=== PATIENT | male | born 1980 | race African-American/Black ===

== ENCOUNTER → 2017-12-31 13:07 | Outpatient (CLI) | payer OTHER, SELFPAY | PROVIDERS: Visit Provider Nurse Practitioner Adult Health | DX: R36.9 Urethral discharge, unspecified (principal) ==

== ENCOUNTER → 2020-05-09 16:34 | Outpatient (CLI) | payer OTHER, SELFPAY ==
[2020-05-09 18:04] LABS: Absolute Lymphocyte Count 1.94 X10^3/uL (0.83-4.51); Absolute Neutrophil Count 2.2 X10^3/uL (2.0-7.7); Basophil# 0.03 X10^3/uL; Basophil% 0.6 % (0-1); Eosinophil# 0.12 X10^3/uL; Eosinophils% 2.5 % (0-5); Hematocrit 45.8 % (40-54); Hemoglobin 15.1 g/dL (13.0-16.5); Lymphocyte # 1.94 X10^3/ul (4.0); Lymphocyte % 41.1 % (19-41); Mean Corpuscular Hgb 31.3 pg (27.0-32.0); Mean Platelet Vol. 10.3 fl (6.2-12.0); Monocyte# 0.41 X10^3/uL; Monocyte% 8.7 % (0-10); NRBC Flagged by Analyzer 0 % (0-5); Neutrophil # 2.21 X10^3/uL (2.7-7.7); Neutrophil % 46.9 % (47-70); Platelet Count 254 K/mm3 (150-450); RBC Distribution Width CV 12.6 % (11.6-14.6); RBC Distribution Width SD 43.6 fl (35.1-43.9); Red Blood Count 4.82 M/mm3 (4.6-6.2); White Blood Count 4.7 K/mm3 (4.4-11.0)
== END ==
PROVIDERS: PCP Family Medicine; Referring Provider Family Medicine; Visit Provider Family Medicine
DX: R10.30 Lower abdominal pain, unspecified (principal)
CPT/HCPCS: 36415; 84153; 85025

== ENCOUNTER → 2020-05-14 16:10 | Outpatient (CLI) | payer OTHER, SELFPAY ==
--- NOTE | 2020-05-14 16:13 | US_ITS ---
STUDY: SCROTUM ULTRASOUND REASON FOR EXAM: Male, 39 years old. LEFT TESTICULAR PAIN A COUPLE MONTHS PALPABLE LUMP TECHNIQUE: Ultrasound evaluation of the scrotum was performed with color Doppler and static scott-scale imaging. COMPARISON: None. FINDINGS: Right testicle measures 4.0 x 2.7 x 2.5 cm and left testicle measures 3.6 x 3.0 x 2.5 cm. Testes are symmetric and homogeneous with normal, symmetric vascularity. No testicular mass is present. Area of palpable mass corresponds with the 1.8 cm left epididymal head cyst. Epididymides are otherwise unremarkable with normal vascularity. Trace left hydrocele. Small left varicocele with associated phlebolith. US/Testicular with Arterial Flow IMPRESSION: 1. Area of palpable mass corresponds with the 1.8 cm left epididymal head cyst. 2. Trace left hydrocele. Small left varicocele with associated phlebolith. END OF IMPRESSION: Electronically Signed: Sukumar Ma, at 18:31 EDT Tel , Service support ,
== END ==
PROVIDERS: PCP Family Medicine; Referring Provider Family Medicine; Visit Provider Family Medicine
DX: N50.82 Scrotal pain (principal)
CPT/HCPCS: 76870; 93976

== ENCOUNTER 2020-12-03 20:09 | Emergency (ER) | payer OTHER, SELFPAY ==
[2020-12-03 20:11] VITALS: BP 173/103; PULSE 61; RESP 18; TEMP 36.4; O2SAT 99; BMI 25.1
--- NOTE | 2020-12-03 20:54 | ED.VISSUMM ---
- ER Visit Summary Date of Service: 12/03/20 Chief Complaint: [Penile discharge] History of Present Illness: The patient is a 39 M [presents to the emergency department complaint of penile discharge that started today. Patient states that he had unprotected intercourse several days ago. Patient does have prior history of gonorrhea x2. He denies any fevers. Patient states that the discharge is a beige color. Patient has some mild dysuria. Patient has history of hypertension but not being treated. Patient denies Covid symptoms or Covid exposures.] Physical Examination: [HEENT-PERRLA, EOMI. Cranial nerves II through XII grossly intact. TMs clear. Mucous membranes moist. No adenopathy. Cardiovascular-regular rate and rhythm without murmur or ectopy Lungs-clear to auscultation, chest wall stable without crepitus or subcu emphysema Abdomen-normoactive bowel sounds, soft, nontender, no rebound or rigidity, no peritoneal signs. exam-patient is a circumcised male. No external lesions noted. Patient does have small amount of clearish discharge noted on exam. Extremities-intact ?4, normal range of motion, normal pulses, atraumatic] Test Results: [] Urine was sent for GC and chlamydia and the results will be pending. Emergency Department Course and Treatment: [Patient will be treated with Rocephin 250 mg IM and Zithromax 1 g p.o.] Treatment Plan: [Discharged home stable condition. Patient advised to follow-up with his PCP within the next 5 to 7 days.] Disposition: [Discharged home in stable condition] Impression: [Urethritis] This note was generated with [employer] dictation software. It may contain incorrect words, spelling, and punctuation that were not noted in review of the chart prior to signing ED Disposition - Plan for ED Patient: Referrals: Kerrie Painter PA-C [Primary Care Provider] -
--- NOTE | 2020-12-03 20:57 | ED.DEP ---
ED Disposition - Plan for ED Patient: Instructions: ED STI Male Treated Referrals: Kerrie Painter PAPatiC [Primary Care Provider] - 5-7 Days
[2020-12-03] MEDS: Azithromycin 250 MG Tablet 1000 MG PO (21:14)
[2020-12-03] MEDS: Ceftriaxone 500 MG Vial 250 MG IM (21:15)
== END 2020-12-03 21:39 | disposition home or self-care (01) ==
LOC: ED 21:07
PROVIDERS: Emergency Provider Emergency Medicine; PCP Family Medicine
DX: N34.2 Other urethritis (principal); Z72.0 Tobacco use
CPT/HCPCS: 96372; 99284

== ENCOUNTER → 2021-02-03 15:53 | Outpatient (CLI) | payer OTHER, SELFPAY ==
[2021-02-03 19:59] LABS: Chlamydia Trachomatis by PCR Negative (Negative); Neisserai gonorrhoeae by PCR Negative (Negative); Probe Check PASS; Sample Adequacy Control PASS; Specimen Processing Control PASS
== END ==
PROVIDERS: PCP Family Medicine; Referring Provider Nurse Practitioner Adult Health; Visit Provider Nurse Practitioner Adult Health
DX: N34.2 Other urethritis (principal); R31.0 Gross hematuria
CPT/HCPCS: 36415; 84153; 87491; 87591

== ENCOUNTER → 2021-02-07 07:42 | Outpatient (CLI) | payer OTHER, SELFPAY ==
--- NOTE | 2021-02-07 07:51 | CT_ITS ---
STUDY: CT ABDOMEN AND PELVIS WITH AND WITHOUT CONTRAST REASON FOR EXAM: Male, 40 years old. GROSS HEMATURIA RADIATION DOSAGE (If Supplied By Facility): CTDIvol = ( 10.97 ) mGy, DLP = ( 972.41 ) mGycm TECHNIQUE: Transaxial images were obtained from the dome of the diaphragm to the symphysis pubis without oral contrast. IV 100mL Isovue-300 was administered. Sagittal and coronal images were reconstructed. Individualized dose optimization techniques were used for this CT. COMPARISON: None. FINDINGS: The visualized lung bases are unremarkable. The visualized portions of the heart are within normal limits. Normal liver. Normal gallbladder and extrahepatic biliary system. Normal spleen. Normal pancreas. Normal bilateral adrenal glands. Normal right kidney. 2 cysts are seen in the mid and lower pole region of the left kidney. The larger measures 1 cm. Normal visualized stomach. Normal small intestine. Normal colon. The appendix is visualized and appears normal. Normal abdominal aorta. Normal inferior vena cava. Normal retroperitoneum. Normal urinary bladder. The prostate measures 5.3 cm x 3.4 cm. This causes indentation at the bladder base. Normal abdominal wall. There are mild degenerative changes of the visualized lumbar spine. CT/CT Abd/Pelvis W/WO Contrast IMPRESSION: There are 2 small cysts in the lower pole and mid pole region of the left kidney. Mild enlargement of the prostate causing indentation at the bladder base. Electronically Signed: Lalit Murphy MD at 8:53 EDT , Service support ,
== END ==
PROVIDERS: PCP Family Medicine; Visit Provider Nurse Practitioner Adult Health
DX: R31.0 Gross hematuria (principal); N28.1 Cyst of kidney, acquired; N40.0 Benign prostatic hyperplasia without lower urinary tract symptoms
CPT/HCPCS: 74178; Q9967

== ENCOUNTER 2021-10-22 08:25 | Outpatient (CLI) | payer SELFPAY ==
[2021-10-22 13:48] LABS: Probe Check ND; Specimen Processing Control ND
== END 2021-10-22 23:59 | disposition short-term general hospital (02) ==
LOC: LABSPEC 08:27
PROVIDERS: PCP Family Medicine; Referring Provider Physician Assistant; Visit Provider Physician Assistant
DX: Z11.52 Encounter for screening for COVID-19 (principal)
CPT/HCPCS: 87635; U0003; U0005

== ENCOUNTER → 2022-04-16 | Outpatient (CLI) | payer BC, SELFPAY ==
[2022-04-16 23:40] LABS: Bacteria 0 SEEN /hpf (None Seen); Mucous, Urine 0 SEEN /hpf (<or=2+); Red Blood Cells-Urine 0 SEEN /hpf (0-5); Squamous Epithelial Cells - UA 0 SEEN /hpf (0-5); White Blood Cells 0 SEEN /hpf (0-5)
[2022-04-17 00:46] LABS: Color, Urine Yellow (Yellow); Glucose, Dipstick Normal (Normal); Ketone-Dipstick Negative (Negative); Leukocyte Esterase-Dipstick Negative /ul (Negative); Nitrite-Dipstick Negative (Negative); Occult Blood-Urine Negative /ul (Negative); Protein-Dipstick Negative (Negative); Specific Gravity, Urine 1.015 (1.002-1.030); Urine Bilirubin Dipstick Negative (Negative); Urine Clarity Clear (Clear); Urine Urobilinogen Normal (Normal)
[2022-04-17 06:24] LABS: Chlamydia Trachomatis by PCR Negative (Negative); Neisserai gonorrhoeae by PCR Negative (Negative); Probe Check PASS; Sample Adequacy Control PASS; Specimen Processing Control PASS
== END | disposition home or self-care (01) ==
PROVIDERS: PCP Family Medicine; Referring Provider Physician Assistant; Visit Provider Physician Assistant
DX: R35.0 Frequency of micturition (principal); L29.9 Pruritus, unspecified
CPT/HCPCS: 81001; 87086; 87491; 87591

== ENCOUNTER → 2022-10-21 | Outpatient (CLI) | payer BC, SELFPAY ==
[2022-10-21 13:19] LABS: Bacteria 0 SEEN /hpf (None Seen); Mucous, Urine 0 SEEN /hpf (<or=2+); Red Blood Cells-Urine 0 SEEN /hpf (0-5); Squamous Epithelial Cells - UA 0 SEEN /hpf (0-5); White Blood Cells 0 SEEN /hpf (0-5)
[2022-10-21 13:22] LABS: Color, Urine Straw (Yellow); Glucose, Dipstick Normal (Normal); Ketone-Dipstick Negative (Negative); Leukocyte Esterase-Dipstick Negative /ul (Negative); Nitrite-Dipstick Negative (Negative); Occult Blood-Urine Negative /ul (Negative); Protein-Dipstick Negative (Negative); Urine Bilirubin Dipstick Negative (Negative); Urine Clarity Clear (Clear); Urine Urobilinogen Normal (Normal)
== END | disposition home or self-care (01) ==
LOC: LABSPEC 12:35
PROVIDERS: PCP Family Medicine; Referring Provider Physician Assistant; Visit Provider Physician Assistant
DX: R35.0 Frequency of micturition (principal); R39.15 Urgency of urination
CPT/HCPCS: 81001; 87086

== ENCOUNTER → 2022-10-23 | Outpatient (CLI) | payer BC, SELFPAY ==
[2022-10-23 12:33] LABS: Chlamydia Trachomatis by PCR Negative (Negative); Neisserai gonorrhoeae by PCR Negative (Negative); Probe Check PASS; Sample Adequacy Control PASS; Specimen Processing Control PASS
== END | disposition home or self-care (01) ==
LOC: LABSPEC 10:06
PROVIDERS: PCP Family Medicine; Referring Provider Physician Assistant; Visit Provider Physician Assistant
DX: R35.0 Frequency of micturition (principal); R39.15 Urgency of urination
CPT/HCPCS: 87491; 87591

== ENCOUNTER → 2023-01-29 | Outpatient (CLI) | payer BC, SELFPAY ==
[2023-01-29 18:00] LABS: Bacteria 0 SEEN /hpf (None Seen); Mucous, Urine 0 SEEN /hpf (<or=2+); Red Blood Cells-Urine 0 SEEN /hpf (0-5); Squamous Epithelial Cells - UA 0 SEEN /hpf (0-5); White Blood Cells 0 SEEN /hpf (0-5)
[2023-01-29 18:27] LABS: Color, Urine Yellow (Yellow); Glucose, Dipstick Normal (Normal); Ketone-Dipstick Negative (Negative); Leukocyte Esterase-Dipstick 25 /ul (Negative); Nitrite-Dipstick Negative (Negative); Occult Blood-Urine Negative /ul (Negative); Protein-Dipstick 15 mg/dl (Negative); Specific Gravity, Urine 1.015 (1.002-1.030); Urine Bilirubin Dipstick Negative (Negative); Urine Clarity Clear (Clear); Urine Urobilinogen 1 mg/dl (Normal); Urine pH 6.5 (5.0 - 8.0)
[2023-01-29 20:00] LABS: Chlamydia Trachomatis by PCR Negative (Negative); Neisserai gonorrhoeae by PCR Negative (Negative); Probe Check PASS; Sample Adequacy Control PASS; Specimen Processing Control PASS
== END | disposition home or self-care (01) ==
PROVIDERS: PCP Family Medicine; Visit Provider Physician Assistant Surgical
DX: R36.9 Urethral discharge, unspecified (principal)
CPT/HCPCS: 81001; 87077; 87086; 87088; 87491; 87591

== ENCOUNTER → 2023-08-12 | Outpatient (CLI) | payer BC, SELFPAY | END | disposition home or self-care (01) | PROVIDERS: Visit Provider Family Medicine | DX: R36.9 Urethral discharge, unspecified (principal) | CPT/HCPCS: 87491; 87591; 87661 ==

== ENCOUNTER → 2023-08-23 | Outpatient (CLI) | payer BC, SELFPAY ==
[2023-08-23 17:54] LABS: Absolute Lymphocyte Count 1.27 X10^3/uL (0.83-4.51); Absolute Neutrophil Count 3.1 X10^3/uL (2.0-7.7); Basophil# 0.03 X10^3/uL; Basophil% 0.6 % (0-1); Eosinophil# 0.05 X10^3/uL; Hemoglobin 14.3 g/dL (13.0-16.5); Lymphocyte # 1.27 X10^3/ul (0.83-4.51); Lymphocyte % 26.1 % (19-41); Mean Corp Hgb Conc 32.5 g/dL (32-36); Mean Corpuscular Hgb 30.6 pg (27.0-32.0); Mean Platelet Vol. 10.9 fl (6.2-12.0); Monocyte# 0.42 X10^3/uL; Monocyte% 8.6 % (0-10); NRBC Flagged by Analyzer 0 % (0-5); Neutrophil # 3.09 X10^3/uL (2.7-7.7); Neutrophil % 63.5 % (47-70); Platelet Count 259 K/mm3 (150-450); RBC Distribution Width CV 12.7 % (11.6-14.6); RBC Distribution Width SD 43.8 fl (35.1-43.9); Red Blood Count 4.68 M/mm3 (4.6-6.2); White Blood Count 4.9 K/mm3 (4.4-11.0)
[2023-08-23 18:22] LABS: ALB/GLOB Ratio 1.3 RATIO (0.9-2.4); AST(SGOT) 14 U/L (15-37); Alanine Aminotransfer ALT/SGPT 24 U/L (16-61); Albumin, Serum 4.1 g/dL (3.2-5.0); Alkaline Phosphatase 81 U/L (45-117); Anion Gap 7 (5-15); BUN 13 mg/dL (7-18); BUN/Creat Ratio 12.3 RATIO (10-20); Calcium,Total 9.1 mg/dL (8.5-10.1); Chloride 107 mmol/L (98-107); Cholesterol 150 mg/dL (200); Creatinine, Serum 1.06 mg/dL (0.70-1.30); EST Glomerular Filtration Rate 81 mL/min (>60); Est Glom Filt Rate - Afr Amer 98 mL/min (>60); Globulin 3.1 g/dL (2.2-4.2); Glucose 90 mg/dL (74-106); High Density Lipoprotein 55 mg/dL; Potassium 3.9 mmol/L (3.5-5.1); Protein, Total 7.2 g/dL (6.4-8.2); Sodium Level 142 mmol/L (136-145); Thyroid Stim Hormone (TSH) 1.76 uIU/mL (0.358-3.74); Triglycerides 167 mg/dL; Very Low Density Lipoprotein 33 mg/dL (5-40)
[2023-08-23 18:27] LABS: Vitamin D,25 Hydroxy 13.1 ng/mL
== END | disposition home or self-care (01) ==
LOC: MFPLAB 15:23
PROVIDERS: PCP Family Medicine; Visit Provider Family Medicine
DX: I10 Essential (primary) hypertension (principal); Z13.21 Encounter for screening for nutritional disorder
CPT/HCPCS: 36415; 80053; 80061; 82306; 84443; 85025

== ENCOUNTER 2024-04-14 13:40 | Emergency (ER) | payer BC, SELFPAY ==
[2024-04-14 13:41] VITALS: BP 167/101; PULSE 54; RESP 14; TEMP 36.2; O2SAT 98; BMI 23.8
--- NOTE | 2024-04-14 13:59 | EX.ED.DYSGE1 ---
HPI <ALEXANDRE Do - Last Filed: 04/14/24 14:19> History of Present Illness Chief Complaint: Other, Pain/Inj Narrative Narrative: 43-year-old male presents with rectal pain and evaluation to see if he has hemorrhoids. He states he had more frequent bowel movements earlier this week and the rectum became irritated. Over the last 2 days with his normal 2-3 daily bowel movements he has had rectal pain during and after defecation and a small amount of bright red blood on the toilet paper. He states often he does have to strain. He has no abdominal pain, nausea or vomiting. No blood thinners. PFSH <ALEXANDRE Do - Last Filed: 04/14/24 14:19> [facility] Medical History Diarrhea Dysuria Fatigue HTN (hypertension) Hypertension, uncontrolled Itching Urethral discharge Urinary frequency Home Medications ?Medication ?Instructions ?Recorded ?Last Taken ?Type acetaminophen 325 mg tablet 325 mg PO Q4H PRN 01/29/23 Unknown History (Tylenol) docusate sodium 100 mg capsule 100 mg PO BID PRN constipation 7 04/14/24 Unknown Rx (Colace) days #14 caps Allergy/AdvReac Type Severity Reaction Status Date / Time doxycycline Allergy Nausea/Vom/ Verified 04/14/24 13:42 Diarrhea Social History Smoking Status: Current every day smoker tobacco type: cigarettes ROS <ALEXANDRE Do - Last Filed: 04/14/24 14:19> ROS ED ROS Narrative Constitutional: Negative for fever, chills, malaise. GI: Negative for abdominal pain, nausea, vomiting, melena, hematochezia. G EXAM <ALEXANDRE Do - Last Filed: 04/14/24 14:19> Physical Exam Narrative Exam Narrative: CONST: Patient sitting in no acute distress. EYES: Normal inspection. NECK: Normal inspection. RESP: No respiratory distress, CTAB. CVS: Regular rate and rhythm, no murmur, no gallop. ABD: Soft and nontender, no guarding or rebound, nondistended. MARINA: Small external hemorrhoid at 7 o'clock position, nonthrombosed no evidence of bleeding. SKIN: Color normal, no rash, warm, dry, intact. EXTREMITIES: Normal appearance, no pedal edema. NEURO: Alert and answering questions appropriately. PSYCH: Normal affect. Const Vital Signs: 04/14/24 13:41 04/14/24 14:12 Temperature 97.2 F L Temperature Source Temporal Pulse Rate 54 L Respiratory Rate 14 Respiratory Effort Normal Non-Labored Blood Pressure 167/101 H Blood Pressure Mean 123 Pulse Ox 98 Oxygen Delivery Method Room Air <Dr. Jose Griffin MD - Last Filed: 04/14/24 14:28> Physical Exam Const Vital Signs: 04/14/24 13:41 04/14/24 14:12 Temperature 97.2 F L Temperature Source Temporal Pulse Rate 54 L Respiratory Rate 14 Respiratory Effort Normal Non-Labored Blood Pressure 167/101 H Blood Pressure Mean 123 Pulse Ox 98 Oxygen Delivery Method Room Air MDM <ALEXANDRE Do - Last Filed: 04/14/24 14:19> [facility] Narrative Medical decision making narrative: Patient has a small external hemorrhoid with no signs of thrombosis or active bleeding. He otherwise appears well and has a benign exam. I prescribed Colace, discussed symptomatic treatment, and recommended he continue the Anusol suppositories he started yesterday. He was discharged in stable condition. <Dr. Jose Griffin MD - Last Filed: 04/14/24 14:28> [facility] Narrative Medical decision making narrative: Patient has a small external hemorrhoid with no signs of thrombosis or active bleeding. He otherwise appears well and has a benign exam. I prescribed Colace, discussed symptomatic treatment, and recommended he continue the Anusol suppositories he started yesterday. He was discharged in stable condition. I have personally performed a face to face assessment of the patient and have reviewed the S[facility]AM Note. I performed a substantive portion of the visit including all aspects of the following. My suarez findings include: History is remarkable for bright red blood on toilet paper and rectal discomfort. Patient presented because of blood. He has no other symptoms. Exam is patient has a visible hemorrhoid at 7:00 lithotomy position. He has no other abnormalities. Medical Decision Making patient's history and physical exam is consistent with bleeding due to hemorrhoid. Other additions or changes: [None] Discharge Plan Triage Chief Complaint: Other, Pain/Inj ED Midlevel Provider: Eula Ely ED Provider: Jose Griffin Dx/Rx/DC Orders Clinical Impression: Hemorrhoids, Hematochezia Instructions: ED Hemorrhoids Prescriptions: New docusate sodium [Colace] 100 mg capsule 100 mg PO BID PRN (Reason: constipation) 7 Days Qty: 14 0RF No Action acetaminophen [Tylenol] 325 mg tablet 325 mg PO Q4H PRN Primary Care Provider: Jasmeet Granados Referrals: Jasmeet Granados MD [Primary Care Provider] - Activity Restrictions/Additional Instructions: Hemorrhoids are swollen veins in the rectum area due to increased pressure. Drink plenty of fluids, eat more fiber and take the stool softeners to try and avoid straining during a bowel movement. You can continue the Anusol suppositories twice daily [id number]. Use sitz bath's which is sitting in a few inches of warm bath water a few times a day which may help relieve the pain. Print Language: Dutch
[2024-04-14 14:30] VITALS: BP 167/101; PULSE 54; RESP 14; TEMP 36.2; O2SAT 98
== END 2024-04-14 14:33 | disposition home or self-care (01) ==
LOC: ED 14:26
PROVIDERS: Emergency Provider Emergency Medicine; PCP Family Medicine; Visit Provider Emergency Medicine
DX: K64.9 Unspecified hemorrhoids (principal); K92.1 Melena; F17.210 Nicotine dependence, cigarettes, uncomplicated
CPT/HCPCS: 99282

== ENCOUNTER 2024-04-22 19:21 | Observation (INO) | payer BC, SELFPAY ==
[2024-04-22] VITALS (11 sets, daily range): BP systolic 153–235; BP diastolic 102–159; PULSE 54–97; RESP 14–28; TEMP 36.8–38.1; O2SAT 76–100; BMI 24.5; BMI 23.8
--- NOTE | 2024-04-22 19:58 | EDS_ITS ---
HPI <GEOFFREY Sheth - Last Filed: 04/22/24 22:11> History of Present Illness Chief Complaint: Other, Pain/Inj Narrative Narrative: Patient is a 43-year-old male with history of hypertension who is currently been dealing with hemorrhoids over the last 2 to 3 weeks. Patient was seen here on April 14, given Colace, and using rectal creams. Patient states the pain is unbearable, over the last 4 days, he has been unable to walk, has been unable to sleep. He states the pain is so severe. Patient states that he does have some blood in his stool. And he is here for reevaluation. Denies any fever or chills. PFSH <GEOFFREY Sheth - Last Filed: 04/22/24 22:11> PFSH Medical History Diarrhea Dysuria Fatigue HTN (hypertension) Hypertension, uncontrolled Itching Urethral discharge Urinary frequency Home Medications ?Medication ?Instructions ?Recorded ?Last Taken ?Type acetaminophen 325 mg tablet 325 mg PO Q4H PRN pain 01/29/23 Unknown History (Tylenol) amlodipine 10 mg tablet 10 mg PO DAILY 04/22/24 Unknown History ibuprofen 200 mg tablet (Advil) 200 mg PO Q4H 04/22/24 Unknown History Allergy/AdvReac Type Severity Reaction Status Date / Time doxycycline Allergy Nausea/Vom/ Verified 04/22/24 19:22 Diarrhea Social History Smoking Status: Current every day smoker tobacco type: cigarettes ROS <GEOFFREY Sheth - Last Filed: 04/22/24 22:11> ROS ED ROS Narrative Constitutional: Negative for fever, chills, weight loss, weakness Eyes: Negative for vision loss, vision change, double vision ENT: Negative for any sore throat, ear pain, congestion Cardiovascular: Negative for any chest pain, tightness, palpitations Respiratory: Negative for any cough, sputum production, hemoptysis, dyspnea, dyspnea on exertion, orthopnea Gastrointestinal: Negative for any abdominal pain, nausea, vomiting, diarrhea, constipation, blood in stool, blood in vomit : Negative for any urinary frequency, dysuria, retention, blood in urine Muscle skeletal: Negative for any neck pain, back pain Neurological: Negative for any headache, syncope, dizziness Skin: Negative for any rashes, itching, abrasions, lacerations Psychiatric: Negative for any depression, anxiety, stress, suicidal ideation, homicidal ideation Hematologic: Negative for any excessive bruising, easy bleeding rectal: Rectal pain, hemorrhoid EXAM <Rodrigue JoseGEOFFREY bryan - Last Filed: 04/22/24 22:11> Physical Exam Narrative Exam Narrative: Vital signs reviewed. Patient is tearful, patient states the pain is severe. He is upset because he keeps getting told that there is nothing wrong and to go home. HEET: Head normocephalic atraumatic, TMs clear bilaterally. Posterior pharynx is clear, moist mucous membranes. Nares clear bilaterally. Neck: Supple with no lymphadenopathy or tenderness. No signs of meningismus. Cardiac: Regular rate and rhythm no murmurs gallops or rubs, equal peripheral pulses bilaterally. Respiratory: Lungs clear to auscultation bilaterally. No chest tenderness. Abdomen: Soft, nontender, nondistended. No abdominal bruit or pulsatile masses. No hepatosplenomegaly Extremities: No peripheral edema, no signs of gross trauma or deformity. Active full range of motion of all extremities. Neuro: Cranial nerves II through XII intact, no focal neurological deficits. Skin: Clean dry and intact with no rash, purpura, petechiae, vesicles or pustules. Backs/flank: No CVA tenderness, no midline spinal tenderness, no deformity. Psych: Normal mood and affect. No SI, HI or acute psychosis. Patient is anxious. Rectal: Rectal exam was completed with female nurse cement conveyor operator, patient did have some edema to the superior rectum however there is no thrombosed hemorrhoid, there is no bleeding hemorrhoid, rectal exam showed no mass. Const Vital Signs: 04/22/24 19:22 04/22/24 19:42 04/22/24 21:22 Temperature 98.2 F Temperature Source Temporal Pulse Rate 97 60 Pulse Rate [1 (Initial Baseline)] Pulse Rate [3] Pulse Rate [5] Respiratory Rate 24 H 20 H Respiratory Rate [1 (Initial Baseline)] Respiratory Rate [3] Respiratory Rate [5] Respiratory Effort Short of Breath Respiratory Pattern Tachypnea Blood Pressure 179/115 H 187/108 H Blood Pressure [1 (Initial Baseline)] Blood Pressure [3] Blood Pressure [5] Blood Pressure Mean 136 134 Pulse Ox 98 98 Oxygen Delivery Method Room Air Room Air Oxygen Delivery Method [1 (Initial Baseline)] Oxygen Delivery Method [2] Oxygen Delivery Method [3] Oxygen Delivery Method [5] Oxygen Flow Rate (L/min) Oxygen Flow Rate (L/min) [3] 04/22/24 21:38 04/22/24 21:44 04/22/24 21:50 Temperature Temperature Source Pulse Rate 55 L Pulse Rate [1 (Initial Baseline)] 55 L Pulse Rate [3] 61 Pulse Rate [5] 54 L Respiratory Rate 20 H Respiratory Rate [1 (Initial Baseline)] 16 Respiratory Rate [3] 18 Respiratory Rate [5] 18 Respiratory Effort Respiratory Pattern Blood Pressure 165/103 H Blood Pressure [1 (Initial Baseline)] 171/103 H Blood Pressure [3] 153/102 H Blood Pressure [5] 235/142 H Blood Pressure Mean Pulse Ox 97 82 Oxygen Delivery Method Room Air Nasal Cannula Oxygen Delivery Method [1 (Initial Baseline)] Room Air Oxygen Delivery Method [2] Room Air Oxygen Delivery Method [3] Nasal Cannula Oxygen Delivery Method [5] Room Air Oxygen Flow Rate (L/min) 4 Oxygen Flow Rate (L/min) [3] 4 Positive well nourished and well developed General Appearance ED: well developed <Dr. Gerard Whaley, DO - Last Filed: 04/22/24 21:57> Physical Exam Const Vital Signs: 04/22/24 19:22 04/22/24 19:42 04/22/24 21:22 Temperature 98.2 F Temperature Source Temporal Pulse Rate 97 60 Pulse Rate [1 (Initial Baseline)] Pulse Rate [3] Pulse Rate [5] Respiratory Rate 24 H 20 H Respiratory Rate [1 (Initial Baseline)] Respiratory Rate [3] Respiratory Rate [5] Respiratory Effort Short of Breath Respiratory Pattern Tachypnea Blood Pressure 179/115 H 187/108 H Blood Pressure [1 (Initial Baseline)] Blood Pressure [3] Blood Pressure [5] Blood Pressure Mean 136 134 Pulse Ox 98 98 Oxygen Delivery Method Room Air Room Air Oxygen Delivery Method [1 (Initial Baseline)] Oxygen Delivery Method [2] Oxygen Delivery Method [3] Oxygen Delivery Method [5] Oxygen Flow Rate (L/min) Oxygen Flow Rate (L/min) [3] 04/22/24 21:38 04/22/24 21:44 04/22/24 21:50 Temperature Temperature Source Pulse Rate 55 L Pulse Rate [1 (Initial Baseline)] 55 L Pulse Rate [3] 61 Pulse Rate [5] 54 L Respiratory Rate 20 H Respiratory Rate [1 (Initial Baseline)] 16 Respiratory Rate [3] 18 Respiratory Rate [5] 18 Respiratory Effort Respiratory Pattern Blood Pressure 165/103 H Blood Pressure [1 (Initial Baseline)] 171/103 H Blood Pressure [3] 153/102 H Blood Pressure [5] 235/142 H Blood Pressure Mean Pulse Ox 97 82 Oxygen Delivery Method Room Air Nasal Cannula Oxygen Delivery Method [1 (Initial Baseline)] Room Air Oxygen Delivery Method [2] Room Air Oxygen Delivery Method [3] Nasal Cannula Oxygen Delivery Method [5] Room Air Oxygen Flow Rate (L/min) 4 Oxygen Flow Rate (L/min) [3] 4 MDM <GEOFFREY Sheth - Last Filed: 04/22/24 22:11> [facility] Lab Data Labs: Laboratory Results - last 24 hr 04/22/24 20:08 WBC 11.9 H RBC 5.10 Hgb 15.3 Hct 45.3 MCV 88.8 MCH 30.0 MCHC 33.8 RDW Std Deviation 38.4 RDW Coeff of Marixa 11.8 Plt Count 374 MPV 9.6 Immature Gran % (Auto) 0.400 Neut % (Auto) 75.8 H Lymph % (Auto) 11.5 L [place] % (Auto) 11.6 H Eos % (Auto) 0.3 Baso % (Auto) 0.4 Absolute Neuts (auto) 9.1 H Absolute Lymphs (auto) 1.37 Nucleated RBC % 0 Sodium 138 Potassium 3.0 L Chloride 102 Carbon Dioxide 27.0 Anion Gap 9 BUN 12 Creatinine 1.28 Estim Creat Clear Calc 73.65 Est GFR (MDRD) Af Amer 78 Est GFR (MDRD) Non-Af 65 BUN/Creatinine Ratio 9.4 L Glucose 103 Calcium 9.9 Radiography Diagnostic Testing: Clinical Impression(s) from Imaging Studies Abdomen/Pelvis CT 04/22/24 20:57 IMPRESSION: 1. Urinary bladder wall has wall thickening. This can be related to a partially contractile state. However, a cystitis is not excluded. Urinalysis should be performed in an effort to exclude cystitis. 2. U shaped perirectal abscess measures 35 x 37 x 48mm. Electronically Signed: Rahul Cormier MD at 21:45 EDT , Treatment and Re-Evaluation :: Differential diagnosis includes however is not limited to: Upper GI bleed, lower GI bleed, thrombosed hemorrhoid, rectal abscess Patient appears to be in mild distress, patient is having significant pain, patient is tearful, yelling because he thinks no one is caring. Patient will receive basic laboratory values, I did perform a rectal exam, there was some swelling however no significant acute findings. No ghassan red blood around the anus. Rectal vault was empty. Patient will receive a CT scan of the ab pelvis with IV contrast. IV fluids, Zofran, morphine will be given. Patient will be reevaluated. All radiologic examinations were read, reviewed by the emergency department attending. From these reads, a plan of care will be put in place. Patient CBC shows a leukocytosis with white blood count of 11.9, chemistry shows slight hypokalemia with a potassium 3.0, patient's stool occult was positive. CT scan was concerning for a possible rectal abscess. We did consult surgery who is here to evaluate the patient to perform an I&D under conscious sedation. Conscious sedation went well. Patient be admitted under surgery. <Dr. Gerard Whaley, DO - Last Filed: 04/22/24 21:57> [facility] Narrative Medical decision making narrative: I have personally performed a face to face assessment of the patient and have reviewed the SOHAM Note. I performed a substantive portion of the visit including all aspects of the following. My suarez findings include: History is [patient presents to the emergency department complaint of rectal pain that he has had for 2 weeks. Patient states that he was seen on April 14 in the emergency department and diagnosed with a hemorrhoid. He has been using MiraLAX and doing sitz bath's and using Anusol to the area. Patient states his symptoms got worse and followed up with primary care physician 2 days after his ER visit. Continues to have pain. Today he felt like he needed to have a bowel movement and passed a large amount of bright red blood per rectum and comes to the ER for evaluation. Denies any fevers or chills or sweats.] Exam is [HEENT-PERRLA, EOMI. Cranial nerves II through XII grossly intact. TMs clear. Mucous membranes moist. No adenopathy. Cardiovascular-regular rate and rhythm without murmur or ectopy Lungs-clear to auscultation, chest wall stable without crepitus or subcu emphysema Abdomen-normoactive bowel sounds, soft, nontender, no rebound or rigidity, no peritoneal signs. Rectal exam-patient has some fullness between the anus and the perineum that is tender to palpation with some mild fluctuance and concern for possible abscess. Extremities-intact ?4, normal range of motion, normal pulses, atraumatic] Medical Decison Making [patient presents with rectal pain. Will obtain lab work and CT scan to evaluate further for possible perineal abscess.] Patient is CBC with differential that showed an elevated white count 11.9 with hemoglobin 15 and platelet count 374. Chemistries unremarkable. I did obtain a CT scan of the ab pelvis with IV contrast that showed a perirectal abscess. Discussed case with general surgeon on-call Dr. Lemus who presented to the emergency department following incision and drainage. Patient was consented for procedural sedation with propofol. Total of 200 mg of propofol was given. He tolerated well. Incision and drainage performed by the surgeon. Patient will be admitted. I was asked to start patient on vancomycin and Zosyn IV. Other additions or changes: [None] Lab Data Attestation: I reviewed the patient's lab results. Labs: Laboratory Results - last 24 hr 04/22/24 20:08 WBC 11.9 H RBC 5.10 Hgb 15.3 Hct 45.3 MCV 88.8 MCH 30.0 MCHC 33.8 RDW Std Deviation 38.4 RDW Coeff of Marixa 11.8 Plt Count 374 MPV 9.6 Immature Gran % (Auto) 0.400 Neut % (Auto) 75.8 H Lymph % (Auto) 11.5 L [place] % (Auto) 11.6 H Eos % (Auto) 0.3 Baso % (Auto) 0.4 Absolute Neuts (auto) 9.1 H Absolute Lymphs (auto) 1.37 Nucleated RBC % 0 Sodium 138 Potassium 3.0 L Chloride 102 Carbon Dioxide 27.0 Anion Gap 9 BUN 12 Creatinine 1.28 Estim Creat Clear Calc 73.65 Est GFR (MDRD) Af Amer 78 Est GFR (MDRD) Non-Af 65 BUN/Creatinine Ratio 9.4 L Glucose 103 Calcium 9.9 Radiography Diagnostic Testing: Clinical Impression(s) from Imaging Studies Abdomen/Pelvis CT 04/22/24 20:57 IMPRESSION: 1. Urinary bladder wall has wall thickening. This can be related to a partially contractile state. However, a cystitis is not excluded. Urinalysis should be performed in an effort to exclude cystitis. 2. U shaped perirectal abscess measures 35 x 37 x 48mm. Electronically Signed: Rahul Cormier MD at 21:45 EDT , Discharge Plan Dx/Rx/DC Orders Clinical Impression: Abscess, perirectal, Rectal bleed, Leukocytosis Disposition Disposition: Acute Care Hospital [facility]
[2024-04-22] MEDS: 0.9% Normal Saline (1000mL) 1,000 ML 999 ML IV (20:17)
[2024-04-22] MEDS: Morphine 4 MG/ML Syringe IV (20:17)
[2024-04-22] MEDS: Ondansetron 4 MG/2 ML Vial IV (20:17)
[2024-04-22 20:26] LABS: Absolute Lymphocyte Count 1.37 X10^3/uL (0.83-4.51); Absolute Neutrophil Count 9.1 X10^3/uL (2.0-7.7); Basophil# 0.05 X10^3/uL; Basophil% 0.4 % (0-1); Eosinophil# 0.03 X10^3/uL; Eosinophils% 0.3 % (0-5); Hematocrit 45.3 % (40-54); Hemoglobin 15.3 g/dL (13.0-16.5); Lymphocyte # 1.37 X10^3/ul (0.83-4.51); Lymphocyte % 11.5 % (19-41); Mean Corp Hgb Conc 33.8 g/dL (32-36); Mean Corpuscular Volume 88.8 fL (80-94); Mean Platelet Vol. 9.6 fl (6.2-12.0); Monocyte# 1.38 X10^3/uL; Monocyte% 11.6 % (0-10); NRBC Flagged by Analyzer 0 % (0-5); Neutrophil # 9.06 X10^3/uL (2.7-7.7); Neutrophil % 75.8 % (47-70); Platelet Count 374 K/mm3 (150-450); RBC Distribution Width CV 11.8 % (11.6-14.6); RBC Distribution Width SD 38.4 fl (35.1-43.9); White Blood Count 11.9 K/mm3 (4.4-11.0)
[2024-04-22 20:45] LABS: Anion Gap 9 (5-15); BUN 12 mg/dL (7-18); BUN/Creat Ratio 9.4 RATIO (10-20); Calcium,Total 9.9 mg/dL (8.5-10.1); Chloride 102 mmol/L (98-107); Creatinine, Serum 1.28 mg/dL (0.70-1.30); EST Glomerular Filtration Rate 65 mL/min (>60); Est Glom Filt Rate - Afr Amer 78 mL/min (>60); Estimated Creatinine Clearance 73.65 ml/min; Glucose 103 mg/dL (74-106); Sodium Level 138 mmol/L (136-145)
--- NOTE | 2024-04-22 20:57 | CT_ITS ---
EXAM: CT ABDOMEN AND PELVIS WITH INTRAVENOUS CONTRAST CLINICAL INDICATION: rectal pain TECHNIQUE: Helically acquired images were obtained of the abdomen and pelvis with intravenous contrast. This CT exam was performed using one or more of the following dose reduction techniques: automated exposure control, adjustment of the mA and/or kV according to patient size, and/or use of iterative reconstruction technique. CONTRAST: IV 100mL Isovue-370 RADIATION DOSE: CTDIvol = 9.42 mGy, DLP = 476.51 mGy-cm COMPARISON: 02/07/2021 FINDINGS: LOWER THORAX: The visualized lung bases are unremarkable. The visualized portions of the heart are within normal limits. No significant pericardial effusion. ABDOMEN: LIVER: Unremarkable liver. Unremarkable gallbladder and extrahepatic biliary system. Unremarkable spleen. Unremarkable pancreas. GALLBLADDER AND BILE DUCTS: See above. PANCREAS: See above. SPLEEN: See above. ADRENALS: Unremarkable bilateral adrenal glands. KIDNEYS AND URETERS: Unremarkable. Normal renal size and position. No hydronephrosis. No acute findings of the right kidney. No acute findings of the left kidney. STOMACH AND BOWEL: Unremarkable. No stomach or bowel distention. No focal inflammatory change. PELVIS: APPENDIX: Unremarkable visualized stomach. Unremarkable small intestine. Unremarkable colon. The appendix is visualized and appears unremarkable. BLADDER: Urinary bladder wall has wall thickening. This can be related to a partially contractile state. However, a cystitis is not excluded. Urinalysis should be performed in an effort to exclude cystitis. REPRODUCTIVE: Unremarkable as visualized. No mass. ABDOMEN and PELVIS: INTRAPERITONEAL SPACE: Unremarkable. No ascites or other fluid collection. No free air. BONES/JOINTS: Unremarkable abdominal wall. There are diffuse degenerative changes of the visualized lumbar spine. No suspicious lytic or blastic abnormality. SOFT TISSUES: U shaped perirectal abscess measures 35 x 37 x 48mm. No discrete abdominal or pelvic wall hernia. VASCULATURE: Unremarkable. Abdominal aorta is non-dilated. LYMPH NODES: There are no acute findings of the abdominal aorta. Unremarkable inferior vena cava. Subcentimeter mesenteric lymph nodes. CT/Abdomen/Pelvis W IV Cont ONLY IMPRESSION: 1. Urinary bladder wall has wall thickening. This can be related to a partially contractile state. However, a cystitis is not excluded. Urinalysis should be performed in an effort to exclude cystitis. 2. U shaped perirectal abscess measures 35 x 37 x 48mm. Electronically Signed: Rahul Cormier MD at 21:45 EDT ,
[2024-04-22] MEDS: Lidocaine 1% (20 ml mdv) 20 ML Vial 10 ML INFILT (21:36)
--- NOTE | 2024-04-22 21:58 | HP.PCM.SX_ITS ---
HPI - General HPI Narrative FALGUNI CALLAHAN, is a 43 M who presents with a 4-day history of perirectal pain. The patient was in the emergency room a few days ago and was told it was a hemorrhoid he then called his primary doctor who also did not think it was anything to worry about and then he came back to the ER and had a CT scan that showed a horseshoe abscess around his rectum. He reports fevers and chills. He is also having night sweats. He has never had this issue in the past. He does report that he had some bright red blood in his stool the last time he had a bowel movement. [facility] Medical History Diarrhea Dysuria Fatigue HTN (hypertension) Hypertension, uncontrolled Itching Urethral discharge Urinary frequency Home Medications ?Medication ?Instructions ?Recorded ?Last Taken ?Type acetaminophen 325 mg tablet 325 mg PO Q4H PRN pain 01/29/23 Unknown History (Tylenol) amlodipine 10 mg tablet 10 mg PO DAILY 04/22/24 Unknown History ibuprofen 200 mg tablet (Advil) 200 mg PO Q4H 04/22/24 Unknown History Allergy/AdvReac Type Severity Reaction Status Date / Time doxycycline Allergy Nausea/Vom/ Verified 04/22/24 19:22 Diarrhea Social History Smoking Status: Current every day smoker tobacco type: cigarettes ROS Constitutional Constitutional: Reports chills and fever(s); Denies anorexia or fatigue Eyes Eyes: Denies blurry vision ENT HEENT: Denies abnormal hearing Cardiovascular Cardiovascular: Denies chest pain Respiratory/Chest Respiratory/Chest: Denies cough or dyspnea Gastrointestinal Gastrointestinal: Reports hematochezia; Denies abdominal pain, melena, nausea or vomiting Genitourinary Genitourinary: Reports difficulty urinating Musculoskeletal Musculoskeletal: Denies abnormal gait or back pain Integumentary Integumentary: Denies jaundice or new lesions Neurologic Neurologic: Denies abnormal gait Vital Signs Vital Signs Vital Signs: 04/22/24 19:22 04/22/24 19:42 04/22/24 21:22 Temperature 98.2 F Temperature Source Temporal Pulse Rate 97 60 Respiratory Rate 24 H 20 H Respiratory Effort Short of Breath Respiratory Pattern Tachypnea Blood Pressure 179/115 H 187/108 H Blood Pressure Mean 136 134 Pulse Ox 98 98 Oxygen Delivery Method Room Air Room Air Oxygen Flow Rate (L/min) 04/22/24 21:38 04/22/24 21:50 Temperature Temperature Source Pulse Rate 55 L Respiratory Rate 20 H Respiratory Effort Respiratory Pattern Blood Pressure 165/103 H Blood Pressure Mean Pulse Ox 97 82 Oxygen Delivery Method Room Air Nasal Cannula Oxygen Flow Rate (L/min) 4 Weight Weight: 166 lb 7.184 oz Body Mass Index (BMI) 24.5 Physical Exam Const oriented x3 and no apparent distress Resp normal respiratory effort Cardio regular rate and regular rhythm GI GI Narrative: Large perianal abscess posterior to the rectum Extremity normal to inspection Lab / Micro Data 04/22/24 20:08 04/22/24 20:08 Labs: Laboratory Results - last 24 hr 04/22/24 20:08: WBC 11.9 H, RBC 5.10, Hgb 15.3, Hct 45.3, MCV 88.8, MCH 30.0, MCHC 33.8, RDW Std Deviation 38.4, RDW Coeff of Marixa 11.8, Plt Count 374, MPV 9.6, Immature Gran % (Auto) 0.400, Neut % (Auto) 75.8 H, Lymph % (Auto) 11.5 L, [place] % (Auto) 11.6 H, Eos % (Auto) 0.3, Baso % (Auto) 0.4, Absolute Neuts (auto) 9.1 H, Absolute Lymphs (auto) 1.37, Nucleated RBC % 0, Sodium 138, Potassium 3.0 L, Chloride 102, Carbon Dioxide 27.0, Anion Gap 9, BUN 12, Creatinine 1.28, Estim Creat Clear Calc 73.65, Est GFR (MDRD) Af Amer 78, Est GFR (MDRD) Non-Af 65, BUN/Creatinine Ratio 9.4 L, Glucose 103, Calcium 9.9 Micro: Microbiology 04/22/24 19:52 Stool Stool Occult Blood ([facility]) - Final Occult Blood Positive Imaging Radiology Impression Abdomen/Pelvis CT 04/22/24 20:57 IMPRESSION: 1. Urinary bladder wall has wall thickening. This can be related to a partially contractile state. However, a cystitis is not excluded. Urinalysis should be performed in an effort to exclude cystitis. 2. U shaped perirectal abscess measures 35 x 37 x 48mm. Electronically Signed: Rahul Cormier MD at 21:45 EDT , Assessment & Plan Assessment/Plan (1) Abscess, perirectal: PLAN: The patient has perirectal abscess on CT scan. Patient reports has been going on for about 4 days. I discussed incision and drainage with the patient and the possibility of a fistula forming. Patient understands the risks and was willing to proceed with incision and drainage. I performed incision and drainage in the emergency room and the area was irrigated and then packed. He will be admitted on antibiotics and await cultures. Pain control. Regular diet. Mike Lemus MD Pager: [facility] [address] [place] [address], [address] [place] [address] Office: Procedure Time Out Time Out Informed consent given: Yes Consent signed: Yes Time out checklist: patient, procedure, site marked/identified, positioning of patient, supplies available, allergies confirmed and team agrees on procedure Time out staff in room: Yes Time out verified: Yes Time out date: 04/22/24 Time out time: 21:35 Date of Procedure: 04/22/24 Procedure: Incision and drainage of perirectal abscess with packing Indication: Perirectal abscess Description of Procedure: The patient had a conscious sedation provided by the ER physician. Once he was adequately anesthetized the perianal area was prepped with Betadine and then the area overlying the abscess posterior to the anus was injected with local anesthetic. A skin incision was made. Forceps was used to deepen the incision to the abscess cavity which was entered and then there was copious drainage of purulent material. This was cultured. Next Yankauer suction was placed into the abscess cavity and it was suctioned of all of its contents. The area was then irrigated and suctioned and then packed with half-inch iodoform gauze. Dressings were applied. Patient was awoken and will be admitted for observation.
[2024-04-22] MEDS: Propofol 200 MG/20 ML Vial IV BOLUS (22:17)
[2024-04-22] MEDS: Piperacil/Tazobactam 4.5 GM in 0.9% Normal Saline (100mL MB+) 100 ML IV (22:29)
[2024-04-22] MEDS: Acetaminophen 500 MG Tablet 1000 MG PO (22:50)
[2024-04-22] MEDS: Vancomycin HCl 1,250 MG in 0.9% Normal Saline (250mL Bag) 250 ML 167 MG IV (23:18)
[2024-04-22] MEDS: 0.9% Normal Saline (1000mL) 1,000 ML 60 ML IV (23:28)
[2024-04-22] MEDS: oxyCODONE 5 MG Tablet PO (23:28)
[2024-04-22] MEDS: Ketorolac 15 MG/ML Vial IV (23:28)
[2024-04-23 00:43] VITALS: BP 164/96; PULSE 59; RESP 16; TEMP 37.2; O2SAT 100
--- NOTE | 2024-04-23 01:33 | PCM.RX.CS ---
Consult Antibiotic Management Pharmacy has been consulted to manage selected antibiotic: Vancomycin Type of Intervention Type of Consult: New start Labs Labs: Sodium 138 mmol/L (136-145) 04/22/24 20:08 Potassium 3.0 mmol/L (3.5-5.1) L 04/22/24 20:08 Chloride 102 mmol/L (98-107) 04/22/24 20:08 Carbon Dioxide 27.0 mmol/L (21.0-32.0) 04/22/24 20:08 Anion Gap 9 (5-15) 04/22/24 20:08 BUN 12 mg/dL (7-18) 04/22/24 20:08 Creatinine 1.28 mg/dL (0.70-1.30) 04/22/24 20:08 Est GFR (MDRD) Af Amer 78 mL/min (>60) 04/22/24 20:08 Est GFR (MDRD) Non-Af 65 mL/min (>60) 04/22/24 20:08 BUN/Creatinine Ratio 9.4 RATIO (10-20) L 04/22/24 20:08 Glucose 103 mg/dL (74-106) 04/22/24 20:08 Microbiology Microbiology: Microbiology 04/22/24 19:52 Stool Stool Occult Blood ([facility]) - Final Occult Blood Positive Dosing Weight Weight used for dosin.4 kg Estimated Creatinine Clearance Estimated Creatinine Clearance: 73.65 Goal Trough Goal Trough: 10-15 mcg/mL Pharmacy Plan for Drug Dosing Pharmacy Plan for Drug Dosing: Pharmacy Service will continue to monitor and adjust dosing as required. 1250MG IN ER, 750MG Q12H TROUGH PRIOR TO 4TH DOSE Follow-Up Labs Follow-Up Labs: Trough: Vancomycin Date/Time Labs Ordered Labs to be done on [date and time ordered]: 04/24 @ 1100
[2024-04-23 05:14] VITALS: BP 133/89; PULSE 87; RESP 16; TEMP 36.6; O2SAT 100
[2024-04-23] MEDS: Piperacil/Tazobactam 3.375 GM in 0.9% Normal Saline (50mL MB+) 50 ML IV ×3 (05:16→20:00)
--- NOTE | 2024-04-23 06:51 | PCM.PN.SRG ---
Subjective Subjective The patient reports he is in no pain this morning. He does report that he still had some blood when passing gas. Objective Data Objective Data Vital Signs: Vital Signs Temp Pulse Resp BP Pulse Ox O2 Del Method O2 Flow Rate 97.8 F 87 16 133/89 H 100 Room Air 0 04/23/24 05:14 04/23/24 05:14 04/23/24 05:14 04/23/24 05:14 04/23/24 05:14 04/23/24 05:14 04/22/24 21:55 Oxygen Flow Rate (L/min) [3] 4 Oxygen Flow Rate (L/min) 0 Oxygen Delivery Method [5] Room Air Oxygen Delivery Method [3] Nasal Cannula Oxygen Delivery Method [2] Room Air Oxygen Delivery Method [1 ( Room Air Initial Baseline)] Oxygen Delivery Method Room Air Weight: 161 lb 13.109 oz Body Mass Index (BMI) 23.8 Intake & Output: Intake and Output for Last 24 Hours 04/21/24 04/22/24 04/23/24 23:59 23:59 23:59 Intake Total 1100 / 1400 575 / 575 Balance 1100 / 1400 575 / 575 Lab / Micro Data 04/22/24 20:08 04/22/24 20:08 Labs: Laboratory Results - last 24 hr 04/22/24 20:08: WBC 11.9 H, RBC 5.10, Hgb 15.3, Hct 45.3, MCV 88.8, MCH 30.0, MCHC 33.8, RDW Std Deviation 38.4, RDW Coeff of Marixa 11.8, Plt Count 374, MPV 9.6, Immature Gran % (Auto) 0.400, Neut % (Auto) 75.8 H, Lymph % (Auto) 11.5 L, [place] % (Auto) 11.6 H, Eos % (Auto) 0.3, Baso % (Auto) 0.4, Absolute Neuts (auto) 9.1 H, Absolute Lymphs (auto) 1.37, Nucleated RBC % 0, Sodium 138, Potassium 3.0 L, Chloride 102, Carbon Dioxide 27.0, Anion Gap 9, BUN 12, Creatinine 1.28, Estim Creat Clear Calc 73.65, Est GFR (MDRD) Af Amer 78, Est GFR (MDRD) Non-Af 65, BUN/Creatinine Ratio 9.4 L, Glucose 103, Calcium 9.9 Micro: Microbiology 04/22/24 19:52 Stool Stool Occult Blood ([facility]) - Final Occult Blood Positive Radiography Diagnostic Testing: Radiology Impression Abdomen/Pelvis CT 04/22/24 20:57 IMPRESSION: 1. Urinary bladder wall has wall thickening. This can be related to a partially contractile state. However, a cystitis is not excluded. Urinalysis should be performed in an effort to exclude cystitis. 2. U shaped perirectal abscess measures 35 x 37 x 48mm. Electronically Signed: Rahul Cormier MD at 21:45 EDT , Physical Exam Const oriented x3 and no apparent distress Resp normal respiratory effort GI soft to palpation and non-tender Assessment & Plan Assessment/Plan (1) Abscess, perirectal: PLAN: The patient has a large perirectal horseshoe abscess. It was drained in the emergency room last night and packed. The patient is reporting and was reporting before drainage that he was having blood per rectum. Unsure if he has a fistula. Continue packing changes and antibiotics for today. Mike Lemus MD Pager: [facility] [address] [place] [address], [address] [place] [address] Office:
[2024-04-23 07:30] LABS: Absolute Lymphocyte Count 1.57 X10^3/uL (0.83-4.51); Absolute Neutrophil Count 8.4 X10^3/uL (2.0-7.7); Basophil# 0.03 X10^3/uL; Basophil% 0.3 % (0-1); Eosinophil# 0.04 X10^3/uL; Eosinophils% 0.4 % (0-5); Hemoglobin 13.4 g/dL (13.0-16.5); Lymphocyte # 1.57 X10^3/ul (0.83-4.51); Lymphocyte % 13.9 % (19-41); Mean Corp Hgb Conc 33.5 g/dL (32-36); Mean Corpuscular Hgb 30.7 pg (27.0-32.0); Mean Corpuscular Volume 91.5 fL (80-94); Monocyte# 1.17 X10^3/uL; Monocyte% 10.4 % (0-10); NRBC Flagged by Analyzer 0 % (0-5); Neutrophil # 8.42 X10^3/uL (2.7-7.7); Neutrophil % 74.6 % (47-70); Platelet Count 337 K/mm3 (150-450); RBC Distribution Width SD 40.3 fl (35.1-43.9); Red Blood Count 4.37 M/mm3 (4.6-6.2); White Blood Count 11.3 K/mm3 (4.4-11.0)
[2024-04-23 08:06] LABS: Anion Gap 7 (5-15); BUN 12 mg/dL (7-18); BUN/Creat Ratio 10.1 RATIO (10-20); Chloride 104 mmol/L (98-107); Creatinine, Serum 1.19 mg/dL (0.70-1.30); EST Glomerular Filtration Rate 71 mL/min (>60); Est Glom Filt Rate - Afr Amer 85 mL/min (>60); Estimated Creatinine Clearance 79.22 ml/min; Glucose 114 mg/dL (74-106); Sodium Level 138 mmol/L (136-145)
[2024-04-23] MEDS: Potassium Chloride 10mEq/100mL 10 MEQ/100 ML IV.SOLN. 100 MEQ IV BOLUS ×4 (09:10→12:41)
[2024-04-23] MEDS: Morphine 2 MG/ML Syringe IV ×2 (09:16→23:00)
[2024-04-23 09:40] VITALS: BP 137/91; PULSE 47; RESP 16; TEMP 36.5; O2SAT 98
[2024-04-23] MEDS: Vancomycin HCl 750 MG in 0.9% Normal Saline (250mL Bag) 250 ML 250 MG IV ×2 (11:27→23:20)
[2024-04-23 11:31] VITALS: BP 137/93; PULSE 43; RESP 16; TEMP 37.1; O2SAT 100
[2024-04-23 16:27] VITALS: BP 145/94; PULSE 45; RESP 16; TEMP 37.1; O2SAT 98
[2024-04-23] MEDS: 0.9% Normal Saline (1000mL) 1,000 ML 60 ML IV (20:01)
[2024-04-23 22:59] VITALS: BP 161/108; PULSE 59; RESP 16; TEMP 36.8; O2SAT 100
[2024-04-24 05:00] VITALS: BP 154/101; PULSE 52; RESP 14; TEMP 36.6; O2SAT 99
[2024-04-24] MEDS: Piperacil/Tazobactam 3.375 GM in 0.9% Normal Saline (50mL MB+) 50 ML IV (05:12)
[2024-04-24 08:20] VITALS: BP 147/94; PULSE 69; RESP 16; TEMP 36.9; O2SAT 95
--- NOTE | 2024-04-24 09:56 | PCM.PN.SRG ---
Subjective Subjective Patient reports he is comfortable. He did not have blood in his last bowel movement. Objective Data Objective Data Vital Signs: Vital Signs Temp Pulse Resp BP Pulse Ox O2 Del Method O2 Flow Rate 98.4 F 69 16 147/94 H 95 Room Air 0 04/24/24 08:20 04/24/24 08:20 04/24/24 08:20 04/24/24 08:20 04/24/24 08:20 04/24/24 08:20 04/22/24 21:55 Oxygen Flow Rate (L/min) [3] 4 Oxygen Flow Rate (L/min) 0 Oxygen Delivery Method [5] Room Air Oxygen Delivery Method [3] Nasal Cannula Oxygen Delivery Method [2] Room Air Oxygen Delivery Method [1 ( Room Air Initial Baseline)] Oxygen Delivery Method Room Air Weight: 161 lb 13.109 oz Body Mass Index (BMI) 23.8 Intake & Output: Intake and Output for Last 24 Hours 04/22/24 04/23/24 04/24/24 23:59 23:59 23:59 Intake Total 1100 / 1400 3740 / 4190 1215 / 1215 Balance 1100 / 1400 3740 / 4190 1215 / 1215 Medical Nutrition Assessment Dietitian: Malnutrition Criteria Met Start: 04/23/24 11:25 Freq: Status: Active Protocol: Document 04/23/24 11:25 ZACHERY (Rec: 04/23/24 11:25 ZACHERY [id number]) Nutrition Malnutrition Evidence of Malnutrition Exists Yes Malnutrition (severe): Acute Illness/Injury Evidenced By Suboptimal Energy Intake ( Severe),Weight Loss (Severe) Clinical Problem Acute Disease or Injury Related Malnutrition Etiology related to perirectal abcess Signs/Symptoms as evidenced by 4.9% unintended wt loss and po intake meeting <75% of 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 Lab / Micro Data 04/23/24 06:00 04/23/24 06:00 Micro: Microbiology 04/22/24 22:30 Perianal Abcess Gram Stain - Final 04/22/24 22:30 Perianal Abcess Wound Culture - Preliminary Gram negative wenceslao 04/22/24 19:52 Stool Stool Occult Blood ([facility]) - Final Occult Blood Positive Physical Exam Const oriented x3 and no apparent distress Resp normal respiratory effort GI normal to inspection, nondistended, normoactive bowel sounds Assessment & Plan Assessment/Plan (1) Abscess, perirectal: PLAN: The patient reports he is very comfortable. He does have some itching in the anal area. I took a look I do not see any hemorrhoids or inflammation in the anus. The dressing is clean and intact. Packing will be changed twice a day. Patient reports he tolerated a regular diet and his pain is well-controlled. I will discharge him home on oral antibiotics and follow-up with him next week. Mike Lemus MD Pager: [facility] [address] [place] [address], [address] [place] [address] Office:
[2024-04-24 11:17] VITALS: BP 144/101; PULSE 43; RESP 16; TEMP 37; O2SAT 100
--- NOTE | 2024-04-24 11:21 | PCM.DC.SUM ---
Providers Date of Admission: 04/22/24 Primary Care Physician: Jasmeet Granados MD Reason For Visit: PERIRECTAL ABSCESS Diagnosis Discharge Diagnosis (1) Abscess, perirectal: Status: Acute Code(s): K61.1 - Rectal abscess Medications at Discharge Home Medications acetaminophen 325 mg tablet (Tylenol) 325 mg PO Q4H PRN pain 01/29/23 amlodipine 10 mg tablet 10 mg PO DAILY 04/22/24 ibuprofen 200 mg tablet (Advil) 200 mg PO Q4H 04/22/24 ciprofloxacin HCl 500 mg tablet (Cipro) 500 mg PO BID 7 days #14 tabs 04/24/24 metronidazole 500 mg tablet 500 mg PO TID 7 days #21 tabs 04/24/24 oxycodone 5 mg tablet 5 mg PO Q6H PRN PRN Pain Score 4-10 2 days #6 tabs 04/24/24 Hospital Course Operations - (incision and drainage of perirectal abscess) Summary of Care Provided Minutes Spent on Discharge: 25 Hospital Course: Patient is a 43 y/o M I am following for perirectal abscess. Patient presented with 2-3 week history of bleeding hemorrhoids with over the last 4 days he was having rectal pain. Patient presented to the ED. Dr. Lemus performed an incision and drainage of the perirectal abscess on 04/22/24 in the ED. Patient tolerated the procedure well. Patient had an uneventful hospitalization. Upon discharge, patient notes only pain is when packing is being changed and this is minimal pain. He denies any nausea, vomiting. He is tolerating a diet. Physical Exam Const well nourished Medical Records Data Medical Nutrition Assessment Dietitian: Malnutrition Criteria Met Start: 04/23/24 11:25 Freq: Status: Active Protocol: Document 04/23/24 11:25 ZACHERY (Rec: 04/23/24 11:25 [facility] [id number]) Nutrition Malnutrition Evidence of Malnutrition Exists Yes Malnutrition (severe): Acute Illness/Injury Evidenced By Suboptimal Energy Intake ( Severe),Weight Loss (Severe) Clinical Problem Acute Disease or Injury Related Malnutrition Etiology related to perirectal abcess Signs/Symptoms as evidenced by 4.9% unintended wt loss and po intake meeting <75% of 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 Weight / BMI Weight Weight: 161 lb 13.109 oz Body Mass Index (BMI) 23.8 ABG / Lab / Microbiology Data 04/23/24 06:00 04/23/24 06:00 Microbiology: Microbiology 04/22/24 22:30 Perianal Abcess Gram Stain - Final 04/22/24 22:30 Perianal Abcess Wound Culture - Preliminary Gram negative wenceslao 04/22/24 19:52 Stool Stool Occult Blood ([facility]) - Final Occult Blood Positive D/C Instructions Discharge Diet: Light diet - advance as tolerated Call your doctor if your incision/area has: Continuous Slow Oozing, Sudden Increased Bleeding, Increased Pain/ Swelling, Increased Redness, Foul Smelling Discharge and Swelling at the incision site Call your doctor if you observe: Fever of 101 or Higher Additional Dressing/Incision Instructions: Recommend changing the packing twice daily until unable to completely pack the area Please Follow Up With: Mike Lemus MD When: Please call our office to schedule a 1 week appointment at [phone] Meaningful Use Info Meaningful Use Meaningful Use Diagnoses (Choose all that apply): None applicable Ischemic Stroke Statin Dosing Therapy Reference: STATIN DOSE THERAPY REFERENCE: * Patients > 75 years receive moderate or high dose statin therapy. * Patients 75 years or YOUNGER should receive HIGH intensity statin dose unless contraindicated. You will be required to document reason for non-treatment if statin daily dose does not meet guidelines. HIGH DOSE STATIN THERAPY DAILY Atorvastatin > than or = to 40 mg Rosuvastatin > than or = to 20 mg Amlodipine + Atorvastatin > than or = to 2.5/40 mg Ezetimibe + Simvastatin 10/80 mg Simvastatin 80mg Discharge Plan Admission Admit Date/Time: 04/22/24 22:02 Primary Reason for Your Visit: Perirectal abscess Attending Provider: Mike Lemus Primary Care Provider: Jasmeet Granados Instructions Additional Instructions / Restrictions: Recommend changing packing twice daily until completely closed Packing changes were demonstrated to the patient's support person, who states she is comfortable with changing the packing. You will be taking 2 different antibiotics by mouth for 7 days Follow-up with our office in 1 week. Our office number is [phone] if you have any questions. Discharge Orders/Prescriptions Prescriptions: New oxycodone 5 mg Tablet 5 mg PO Q6H PRN PRN (Reason: Pain Score 4-10) 2 Days Qty: 6 0RF ciprofloxacin HCl [Cipro] 500 mg tablet 500 mg PO BID 7 Days Qty: 14 0RF metronidazole 500 mg tablet 500 mg PO TID 7 Days Qty: 21 0RF Continued acetaminophen [Tylenol] 325 mg tablet 325 mg PO Q4H PRN (Reason: pain) amlodipine 10 mg tablet 10 mg PO DAILY ibuprofen [Advil] 200 mg tablet 200 mg PO Q4H Referrals / Follow Up: Mike Lemus MD [Med Staff - Active Staff] - 05/01/24 Jasmeet Granados MD [Primary Care Provider] - Disposition Disposition (needs filled in before D/C Order can be placed): Home, Self Care Charges/Coding Visit Charges Inpatient E&M: 12394 Disch Hosp (no charge; post-op)
--- NOTE | 2024-04-24 11:25 | CASEMGMT ---
LAW BEARD Assessment: Face to Face with pt for initial transition planning/care coordination assessment. LAW BEARD introduced self and role at [facility], pt voices understanding and consents to assessment. Pt is A&O x4 and answers all questions appropriately at this time. Pt lying in bed in no distress. Care providers, pharmacy, and demographics verified/updated. Admitting Dx: perirectal abscess PCP:Roberta Specialists:[place], [place] Preferred Pharmacy: [facility] Insurance: [place] Prescription Benefit: yes LNOK: Mert Steel, Living Arrangements: Pt lives with in a two story home with 5 steps to enter through the back. Pt reports he is I in ADL's and denies concerns at home. Transportation: Pt drives self and denies concerns with transportation. DME:Denies HHC/SNF: Denies hx of Pt states no concerns with going home at time of dc. Pt reports his will be doing the dressing changes and has watched the nurse do this. He states if they have issues then they will go to the [facility]. Pt denies any need for HHC for this wound. Pt states no further concerns/needs. CM to follow. Advised pt to ask CM if any further question/concerns/needs arise, voices understanding. Pt Goal:Home Plan: Home Bernabe FOY CM
[2024-04-24 12:02] LABS: Vancomycin, Trough Level 7.2 ug/mL (5.0-15.0)
--- NOTE | 2024-04-24 12:20 | PCM.RX.CS ---
Consult Antibiotic Management Pharmacy has been consulted to manage selected antibiotic: Vancomycin Type of Intervention Type of Consult: Follow-up Suspected Infection Suspected Infection: Skin/Soft tissue Prior Doses of Antibiotics Prior Doses of Antibiotics Received/Current Regimen: Vancomycin 750 mg IV Q12H given 04/23 @ 1127 and 04/23 @ 2320 Labs Labs: Sodium 138 mmol/L (136-145) 04/23/24 06:00 Potassium 3.0 mmol/L (3.5-5.1) L 04/23/24 06:00 Chloride 104 mmol/L (98-107) 04/23/24 06:00 Carbon Dioxide 27.0 mmol/L (21.0-32.0) 04/23/24 06:00 Anion Gap 7 (5-15) 04/23/24 06:00 BUN 12 mg/dL (7-18) 04/23/24 06:00 Creatinine 1.19 mg/dL (0.70-1.30) 04/23/24 06:00 Est GFR (MDRD) Af Amer 85 mL/min (>60) 04/23/24 06:00 Est GFR (MDRD) Non-Af 71 mL/min (>60) 04/23/24 06:00 BUN/Creatinine Ratio 10.1 RATIO (10-20) 04/23/24 06:00 Glucose 114 mg/dL (74-106) H 04/23/24 06:00 Vancomycin Trough 7.2 ug/mL (5.0-15.0) 04/24/24 11:07 Microbiology Microbiology: Microbiology 04/22/24 22:30 Perianal Abcess Gram Stain - Final 04/22/24 22:30 Perianal Abcess Wound Culture - Preliminary Gram negative wenceslao 04/22/24 19:52 Stool Stool Occult Blood ([facility]OO[facility]T) - Final Occult Blood Positive Dosing Weight Weight used for dosin.4 kg Estimated Creatinine Clearance Estimated Creatinine Clearance: ~79 Goal Trough Goal Trough: 10-15 mcg/mL Pharmacy Plan for Drug Dosing Pharmacy Plan for Drug Dosing: Vancomycin trough = 7.2, will increase to 1250 mg Q12H Pharmacy Service will continue to monitor and adjust dosing as required. Follow-Up Labs Follow-Up Labs: Trough: Vancomycin Date/Time Labs Ordered Labs to be done on [date and time ordered]: 04/26/24 @ 0000
--- NOTE | 2024-04-24 12:28 | PHA.DC_ITS ---
Pharmacy [facility] has performed discharge medication reconciliation and counseling for this patient. 1. CIPROFLOXACIN 500MG PO BID X 7 DAYS 2. METRONIDAZOLE 500MG PO TID X 7 DAYS 3. OXYCODONE 5MG PO Q6H PRN PAIN The patient's discharge medication list was reviewed for discrepancies and discrepancies were resolved. The patient was counseled on the following discharge medications and changes in medications for homegoing were reviewed. The Reason for Use, instructions for use, and potential side effects were reviewed for all new medications. The patient's questions regarding all of their medications were answered. The patient was able to verbally demonstrate an understanding of their discharge medications. Patient counseled by pharmacy graduate intern Medications at Discharge Home Medications acetaminophen 325 mg tablet (Tylenol) 325 mg PO Q4H PRN pain 01/29/23 amlodipine 10 mg tablet 10 mg PO DAILY 04/22/24 ibuprofen 200 mg tablet (Advil) 200 mg PO Q4H 04/22/24 ciprofloxacin HCl 500 mg tablet (Cipro) 500 mg PO BID 7 days #14 tabs 04/24/24 metronidazole 500 mg tablet 500 mg PO TID 7 days #21 tabs 04/24/24 oxycodone 5 mg tablet 5 mg PO Q6H PRN PRN Pain Score 4-10 2 days #6 tabs 04/24/24
[2024-04-24] MEDS: Vancomycin HCl 1,250 MG in 0.9% Normal Saline (250mL Bag) 250 ML 167 MG IV (12:31)
== END 2024-04-24 14:42 | disposition home or self-care (01) | DRG 393 ==
LOC: ED 22:11 → MS3 04-24 11:21
PROVIDERS: Nurse Practitioner; Admitting Provider Surgery; Emergency Provider Emergency Medicine; PCP Family Medicine; Visit Provider Surgery
DX: K61.1 Rectal abscess (principal); E43 Unspecified severe protein-calorie malnutrition; I10 Essential (primary) hypertension; F17.210 Nicotine dependence, cigarettes, uncomplicated; B96.89 Other specified bacterial agents as the cause of diseases classified elsewhere; Z68.23 Body mass index [BMI] 23.0-23.9, adult; Z79.899 Other long term (current) drug therapy
CPT/HCPCS: 36415; 46050; 74177; 80048; 80202; 82274; 85025; 87070; 87075; 87077; 87186; 87205; 96361; 96365; 96366; 96367; 96368; 96375; 96376; 97802; 99152; 99221; 99283; 99406; Q9967; A4216; G0378; J2405

== ENCOUNTER 2024-04-26 11:12 | Outpatient (CLI) | payer BC, SELFPAY ==
[2024-04-26 11:25] VITALS: BP 153/100; PULSE 49; RESP 16; TEMP 36.2; O2SAT 100; BMI 24.7
[2024-04-26] MEDS: 0.9% Normal Saline (100mL Bag) 100 ML 15 ML IV (11:29)
[2024-04-26] MEDS: Ertapenem Sod 1 GM in 0.9% Normal Saline (50mL MB+) 50 ML IV (11:29)
[2024-04-26] MEDS: 0.9% NaCl PICC Flush IV (11:30)
[2024-04-26 12:14] VITALS: BP 132/75; PULSE 48; RESP 16; TEMP 36.5; O2SAT 98
== END 2024-04-26 23:59 | disposition home or self-care (01) ==
PROVIDERS: PCP Family Medicine; Referring Provider Physician Assistant; Visit Provider Physician Assistant
DX: K62.5 Hemorrhage of anus and rectum (principal); A49.9 Bacterial infection, unspecified; Z16.12 Extended spectrum beta lactamase (ESBL) resistance; Z79.2 Long term (current) use of antibiotics
CPT/HCPCS: 96365; A4216

== ENCOUNTER → 2024-04-26 | Outpatient (CLI) | payer BC, SELFPAY ==
[2024-04-26 09:18] VITALS: BP 142/90; PULSE 54; RESP 18; TEMP 36.5; O2SAT 98; BMI 24.7
== END | disposition home or self-care (01) ==
PROVIDERS: PCP Family Medicine; Referring Provider Physician Assistant; Visit Provider Physician Assistant
DX: K61.1 Rectal abscess (principal); Z79.2 Long term (current) use of antibiotics
CPT/HCPCS: 36569

== ENCOUNTER 2024-04-27 10:13 | Outpatient (CLI) | payer BC, SELFPAY ==
[2024-04-27] MEDS: Ertapenem Sod 1 GM in 0.9% Normal Saline (50mL MB+) 50 ML IV (10:23)
[2024-04-27] MEDS: 0.9% NaCl PICC Flush IV ×2 (10:23→11:28)
[2024-04-27 10:26] VITALS: BP 125/71; PULSE 54; RESP 16; TEMP 36.2; O2SAT 97; BMI 24.7
[2024-04-27 11:29] VITALS: BP 133/76; PULSE 68; RESP 16; TEMP 36.3; O2SAT 97
== END 2024-04-27 23:59 | disposition home or self-care (01) ==
LOC: MEDOUTP 10:13
PROVIDERS: PCP Family Medicine; Referring Provider Physician Assistant; Visit Provider Physician Assistant
DX: K62.5 Hemorrhage of anus and rectum (principal); A49.9 Bacterial infection, unspecified; Z16.12 Extended spectrum beta lactamase (ESBL) resistance; Z79.2 Long term (current) use of antibiotics
CPT/HCPCS: 96365; A4216

== ENCOUNTER 2024-04-28 10:07 | Outpatient (CLI) | payer BC, SELFPAY ==
[2024-04-28] MEDS: 0.9% NaCl PICC Flush IV ×2 (10:27→11:28)
[2024-04-28] MEDS: Ertapenem Sod 1 GM in 0.9% Normal Saline (50mL MB+) 50 ML IV (10:28)
[2024-04-28 10:29] VITALS: BP 134/77; PULSE 52; RESP 16; TEMP 36
[2024-04-28 11:33] VITALS: BP 134/84; PULSE 50; RESP 16; TEMP 36.2; O2SAT 100
== END 2024-04-28 23:59 | disposition home or self-care (01) ==
LOC: MEDOUTP 10:07
PROVIDERS: PCP Family Medicine; Referring Provider Physician Assistant; Visit Provider Physician Assistant
DX: K62.5 Hemorrhage of anus and rectum (principal); A49.9 Bacterial infection, unspecified; Z16.12 Extended spectrum beta lactamase (ESBL) resistance; Z79.2 Long term (current) use of antibiotics
CPT/HCPCS: 96365; J7050; A4216

== ENCOUNTER 2024-04-29 10:06 | Outpatient (CLI) | payer BC, SELFPAY ==
[2024-04-29] MEDS: Ertapenem Sod 1 GM in 0.9% Normal Saline (50mL MB+) 50 ML IV (10:15)
[2024-04-29] MEDS: 0.9% NaCl IVPB Med Flush (250 mL) 15 ML IV (10:15)
[2024-04-29] MEDS: 0.9% NaCl PICC Flush IV ×2 (10:18→10:59)
[2024-04-29 10:24] VITALS: BP 140/93; PULSE 57; RESP 16; TEMP 36.8; O2SAT 96
== END 2024-04-29 10:59 | disposition home or self-care (01) ==
LOC: MEDOUTP 10:07 → MS3 10:08
PROVIDERS: PCP Family Medicine; Referring Provider Physician Assistant; Visit Provider Physician Assistant
DX: K62.5 Hemorrhage of anus and rectum (principal); A49.9 Bacterial infection, unspecified; Z16.12 Extended spectrum beta lactamase (ESBL) resistance; Z79.2 Long term (current) use of antibiotics
CPT/HCPCS: 96365; J7050; A4216

== ENCOUNTER 2024-04-30 10:13 | Outpatient (CLI) | payer BC, SELFPAY ==
[2024-04-30 10:16] VITALS: BP 138/88; PULSE 65; RESP 16; TEMP 36.6; O2SAT 99
[2024-04-30] MEDS: 0.9% NaCl PICC Flush IV ×2 (10:17→11:02)
[2024-04-30] MEDS: 0.9% NaCl IVPB Med Flush (250 mL) 15 ML IV (10:17)
[2024-04-30] MEDS: Ertapenem Sod 1 GM in 0.9% Normal Saline (50mL MB+) 50 ML IV (10:17)
== END 2024-04-30 11:00 | disposition home or self-care (01) ==
LOC: MEDOUTP 10:14 → MS3 10:14
PROVIDERS: PCP Family Medicine; Referring Provider Physician Assistant; Visit Provider Physician Assistant
DX: K62.5 Hemorrhage of anus and rectum (principal); A49.9 Bacterial infection, unspecified; Z16.12 Extended spectrum beta lactamase (ESBL) resistance; Z79.2 Long term (current) use of antibiotics
CPT/HCPCS: 96365; J7050; A4216

== ENCOUNTER 2024-05-01 10:10 | Outpatient (CLI) | payer BC, SELFPAY ==
[2024-05-01 10:18] VITALS: BP 128/88; PULSE 55; RESP 16; TEMP 36; O2SAT 99; BMI 25.1
[2024-05-01] MEDS: Ertapenem Sod 1 GM in 0.9% Normal Saline (50mL MB+) 50 ML IV (10:42)
[2024-05-01] MEDS: 0.9% NaCl PICC Flush IV ×2 (10:43→11:39)
[2024-05-01 11:41] VITALS: BP 130/58; PULSE 57; RESP 16; TEMP 36.1; O2SAT 96
== END 2024-05-01 23:59 | disposition home or self-care (01) ==
LOC: MEDOUTP 10:10
PROVIDERS: PCP Family Medicine; Referring Provider Physician Assistant; Visit Provider Physician Assistant
DX: K62.5 Hemorrhage of anus and rectum (principal); A49.9 Bacterial infection, unspecified; Z16.12 Extended spectrum beta lactamase (ESBL) resistance; Z79.2 Long term (current) use of antibiotics
CPT/HCPCS: 96365; A4216

== ENCOUNTER 2024-05-02 10:06 | Outpatient (CLI) | payer BC, SELFPAY ==
[2024-05-02 10:10] VITALS: BP 125/87; PULSE 67; RESP 16; TEMP 35.7; O2SAT 98; BMI 25.1
[2024-05-02] MEDS: Ertapenem Sod 1 GM in 0.9% Normal Saline (50mL MB+) 50 ML IV (10:24)
[2024-05-02] MEDS: 0.9% NaCl PICC Flush IV ×2 (10:24→11:32)
[2024-05-02 11:33] VITALS: PULSE 59; RESP 16; TEMP 36.1; O2SAT 98
== END 2024-05-02 23:59 | disposition home or self-care (01) ==
LOC: MEDOUTP 10:06
PROVIDERS: PCP Family Medicine; Referring Provider Physician Assistant; Visit Provider Physician Assistant
DX: K62.5 Hemorrhage of anus and rectum (principal); A49.9 Bacterial infection, unspecified; Z16.12 Extended spectrum beta lactamase (ESBL) resistance; Z79.2 Long term (current) use of antibiotics
CPT/HCPCS: 96365; A4216

== ENCOUNTER 2024-05-03 10:03 | Outpatient (CLI) | payer BC, SELFPAY ==
[2024-05-03] MEDS: 0.9% NaCl PICC Flush IV ×3 (10:11→11:25)
[2024-05-03 10:21] VITALS: BP 128/81; PULSE 53; RESP 16; TEMP 35.8; O2SAT 96
[2024-05-03] MEDS: Ertapenem Sod 1 GM in 0.9% Normal Saline (50mL MB+) 50 ML IV (10:25)
[2024-05-03 11:25] VITALS: BP 120/75; PULSE 61; RESP 16; TEMP 35.9; O2SAT 96
== END 2024-05-03 23:59 | disposition home or self-care (01) ==
LOC: MEDOUTP 10:03
PROVIDERS: PCP Family Medicine; Referring Provider Physician Assistant; Visit Provider Physician Assistant
DX: K62.5 Hemorrhage of anus and rectum (principal); A49.9 Bacterial infection, unspecified; Z16.12 Extended spectrum beta lactamase (ESBL) resistance; Z79.2 Long term (current) use of antibiotics
CPT/HCPCS: 96365; A4216

== ENCOUNTER 2024-05-04 10:43 | Outpatient (CLI) | payer BC, SELFPAY ==
[2024-05-04] MEDS: 0.9% Normal Saline (100mL Bag) 100 ML 15 ML IV (10:49)
[2024-05-04] MEDS: 0.9% NaCl PICC Flush IV ×2 (10:49→11:49)
[2024-05-04] MEDS: Ertapenem Sod 1 GM in 0.9% Normal Saline (50mL MB+) 50 ML IV (10:49)
[2024-05-04 10:50] VITALS: BP 113/65; PULSE 51; RESP 16; TEMP 36.4; O2SAT 100; BMI 25.8
== END 2024-05-04 23:59 | disposition home or self-care (01) ==
LOC: MEDOUTP 10:43
PROVIDERS: PCP Family Medicine; Referring Provider Physician Assistant; Visit Provider Physician Assistant
DX: K62.5 Hemorrhage of anus and rectum (principal); A49.9 Bacterial infection, unspecified; Z16.12 Extended spectrum beta lactamase (ESBL) resistance; Z79.2 Long term (current) use of antibiotics
CPT/HCPCS: 96365; A4216

== ENCOUNTER 2024-05-05 10:07 | Outpatient (CLI) | payer BC, SELFPAY ==
[2024-05-05 10:26] VITALS: BP 121/68; PULSE 76; RESP 16; TEMP 36.4; O2SAT 97
[2024-05-05] MEDS: Ertapenem Sod 1 GM in 0.9% Normal Saline (50mL MB+) 50 ML IV (10:29)
[2024-05-05] MEDS: 0.9% NaCl PICC Flush IV (10:29)
[2024-05-05] MEDS: 0.9% Normal Saline (100mL Bag) 100 ML 15 ML IV (10:29)
[2024-05-05 11:31] VITALS: BP 114/64; PULSE 50; RESP 16; TEMP 36.5; O2SAT 99
== END 2024-05-05 23:59 | disposition home or self-care (01) ==
LOC: MEDOUTP 10:07
PROVIDERS: PCP Family Medicine; Referring Provider Physician Assistant; Visit Provider Physician Assistant
DX: K62.5 Hemorrhage of anus and rectum (principal); A49.9 Bacterial infection, unspecified; Z16.12 Extended spectrum beta lactamase (ESBL) resistance; Z79.2 Long term (current) use of antibiotics
CPT/HCPCS: 96365; A4216

== ENCOUNTER 2024-10-25 19:19 | Emergency (ER) | payer BC, SELFPAY ==
[2024-10-25 19:20] VITALS: BP 163/106; PULSE 69; RESP 16; TEMP 36.8; O2SAT 99; BMI 25.9
--- NOTE | 2024-10-25 19:44 | EDS_ITS ---
HPI History of Present Illness Chief Complaint: Abscess Detail of Chief Complaint: Rectal pain since Wednesday Informant: patient Onset/Context/Timing Onset: Days Context: Sudden Onset Timing: Continuous Quality: Pain Location: Anus Current Severity: Moderate Maximum Severity: Severe Worsened by: Bowel movement Relieved by: Nothing Associated Symptoms Associated Symptoms: Blood noted on stool yesterday Narrative Narrative: Patient is a 43-year-old male. He has history of rectal bleeding, perirectal abscess, uncontrolled hypertension, and chronic fatigue who presents with painful lump anus. He states he tried to push it in without success. He did no blood on his stool yesterday. He does not have history of hemorrhoids. He has no history of liver disease. There is no history of rectal trauma. He denies constipation or diarrhea. He has allergy to doxycycline. Prior similar symptoms: No Recent Illness/Hospitalization: No PFSH PFSH Medical History Hypertension, uncontrolled Dysuria Urethral discharge Urinary frequency Itching Diarrhea Fatigue HTN (hypertension) Home Medications ?Medication ?Instructions ?Recorded ?Last Taken ?Type acetaminophen 325 mg tablet 325 mg PO Q4H PRN pain 01/29/23 Unknown History (Tylenol) ibuprofen 200 mg tablet (Advil) 200 mg PO Q4H 04/22/24 Unknown History ciprofloxacin HCl 500 mg tablet 500 mg PO BID 7 days #14 tabs 04/24/24 Unknown Rx (Cipro) oxycodone 5 mg tablet 5 mg PO Q6H PRN PRN Pain Score 04/24/24 Unknown Rx 4-10 2 days #6 tabs Allergy/AdvReac Type Severity Reaction Status Date / Time doxycycline Allergy Nausea/Vom/ Verified 10/25/24 19:22 Diarrhea Social History Smoking Status: Current every day smoker tobacco type: cigarettes ROS ROS ED Constitutional Constitutional ED: Denies chills, fever(s), subjective, sweats or weight loss Gastrointestinal Gastrointestinal: Reports other Details: Hematochezia yesterday with bowel movement ; Denies abdominal pain, constipation, diarrhea, melena, nausea or vomiting Genitourinary Genitourinary ED: Denies dysuria, hematuria or urinary frequency Hematologic/Lymphatic Hematologic/Lymphatic: Reports systems reviewed and no addt'l complaints, except as documented EXAM Physical Exam Const Vital Signs: 10/25/24 19:20 Temperature 98.2 F Temperature Source Oral Pulse Rate 69 Respiratory Rate 16 Blood Pressure 163/106 H Blood Pressure Mean 125 Pulse Ox 99 Oxygen Delivery Method Room Air Positive well nourished and well developed Constitutional Narrative: Patient appears uncomfortable. Blood pressure is elevated. General Appearance ED: well developed; Negative for pallor HEENT Reports moist mucous membranes HEENT Narrative: Head is atraumatic normocephalic. Ears normal. Eyes PERRL and EOMs intact bilaterally General Eye ED: Negative for pale conjunctiva or scleral icterus Resp normal respiratory effort and clear to auscultation bilaterally Cardio regular rate, regular rhythm, S1 normal heart sound, S2 normal heart sound and no murmurs GI normal to inspection, nondistended, normoactive bowel sounds, non-tender, non- distended and no masses; Negative for hepatosplenomegaly GI Narrative: Patient has a cluster of hemorrhoids and there is a thrombosed hemorrhoid noted from approximately 2:00 to 6:00 in lithotomy position. Palpation: soft Extremity normal to inspection Neuro oriented x3 and CN's II-XII intact bilaterally Sensorium / Orientation: alert Psych mental status grossly normal Skin no rashes or lesions noted, no wounds and skin turgor normal General Skin Exam: Negative for jaundice or pallor MDM MDM MDM Narrative Medical decision making narrative: Patient has a moderate-sized thrombosed hemorrhoid. Plan is to anesthetize and size and expel the clots. Patient has no history of coagulopathy. He is on no antithrombotic or anticoagulant. History & Record Review Additional record(s) reviewed:: Prior outpatient record (Seen for STD exposure and dysuria October 2022 urgent care and April 2022) and Prior ED visit (Seen April 2024 for perirectal abscess that was drained by surgery in the emergency department.) Procedures Other Procedures Procedure(s): Patient was consented for incision and drainage of the thrombosed hemorrhoid. Explained risk benefits. He had opportunity ask questions and none were asked. Patient was prepped and area cleansed with Betadine. The area was then anesthetized by local infiltration. Pressure was applied to the hemorrhoid. There was redundant tissue noted. Elliptical incision was made to remove the redundant tissue. The clot was expressed from the hemorrhoid. 1 stitch was placed using 5-0 chromic to close the wound. Bleeding was controlled. Patient was discharged to home with appropriate home-going instructions in stable condition. Discharge Plan Triage Chief Complaint: Abscess ED Provider: Jose Griffin Dx/Rx/DC Orders Clinical Impression: External hemorrhoid, thrombosed, HTN (hypertension), External hemorrhoids Instructions: Thrombosed Hemorrhoids Prescriptions: No Action acetaminophen [Tylenol] 325 mg tablet 325 mg PO Q4H PRN (Reason: pain) ibuprofen [Advil] 200 mg tablet 200 mg PO Q4H oxycodone 5 mg Tablet 5 mg PO Q6H PRN PRN (Reason: Pain Score 4-10) 2 Days Qty: 6 0RF ciprofloxacin HCl [Cipro] 500 mg tablet 500 mg PO BID 7 Days Qty: 14 0RF Primary Care Provider: Jasmeet Granados Referrals: Jasmeet Granados MD [Primary Care Provider] - Beth Weir MD [Med Staff - Active Staff] - As Needed Print Language: Maltese Disposition Disposition: Home, Self Care
[2024-10-25] MEDS: Lidocaine 1% (20 ml mdv) 20 ML Vial INFILT (19:53)
--- NOTE | 2024-10-25 20:16 | ED.RN ---
This RN educated the patient on wound cleaning, padding, and s/s of infection. Patient was given gauze and pads. Gauze remains in place, placed by Dr Griffin. Patient verbalizes usage of gauze and pads and appropriate cleaning.
== END 2024-10-25 20:18 | disposition home or self-care (01) ==
PROVIDERS: Emergency Provider Emergency Medicine; PCP Family Medicine; Visit Provider Emergency Medicine
DX: K64.5 Perianal venous thrombosis (principal); I10 Essential (primary) hypertension; F17.210 Nicotine dependence, cigarettes, uncomplicated
CPT/HCPCS: 46083; 99283

== ENCOUNTER 2025-06-18 07:56 | Emergency (ER) | payer BC, SELFPAY ==
[2025-06-18 07:56] VITALS: BP 160/98; PULSE 77; RESP 14; TEMP 36.2; O2SAT 98; BMI 25.4
--- NOTE | 2025-06-18 08:15 | EX.ED.UPPERE ---
HPI History of Present Illness Chief Complaint: Laceration Narrative Narrative: 44-year-old male who denies significant past medical history presents with injury to his left index finger that he sustained about 45 minutes ago. He states he was cutting up breakfast foods, was not necessarily paying attention, and sustained a laceration to his left index finger. More in the area of the middle phalanx on the lateral aspect. Feels his tetanus immunization is current. Denies other injury. He states that it would not stop bleeding so he had a quick clot. He started to become more nervous regarding this. He presents to the emergency department with a laceration to his left index finger. States does not take any blood thinners. He was using a telemarketer knife. [facility] Medical History Hypertension, uncontrolled Dysuria Urethral discharge Urinary frequency Itching Diarrhea Fatigue HTN (hypertension) Home Medications ?Medication ?Instructions ?Recorded ?Last Taken ?Type acetaminophen 325 mg tablet 325 mg PO Q4H PRN pain 01/29/23 Unknown History (Tylenol) ibuprofen 200 mg tablet (Advil) 200 mg PO Q4H 04/22/24 Unknown History ciprofloxacin HCl 500 mg tablet 500 mg PO BID 7 days #14 tabs 04/24/24 Unknown Rx (Cipro) Held on 04/26/24. Instructions: MD Ordered oxycodone 5 mg tablet 5 mg PO Q6H PRN PRN Pain Score 04/24/24 Unknown Rx 4-10 2 days #6 tabs Allergy/AdvReac Type Severity Reaction Status Date / Time doxycycline Allergy Nausea/Vom/ Verified 06/18/25 07:56 Diarrhea Social History Smoking Status: Current every day smoker tobacco type: cigarettes ROS ROS ED ROS Narrative Review of systems positive for laceration to left index finger. Denies other injury. [id number]. Tetanus immunization current. EXAM Physical Exam Narrative Exam Narrative: Afebrile. Vital signs noted. Nontoxic-appearing. Cardiovascular examination reveals regular rate and rhythm. Lungs clear to auscultation bilaterally. Focused examination of the left index finger does reveal dried blood and quick clot diffusely in the area of the left lateral index finger about the middle phalanx. Sensation intact distal to touch. Appears uninjured at PIP joint. Full range of motion of finger. Const Vital Signs: 06/18/25 07:56 Temperature 97.1 F L Temperature Source Temporal Pulse Rate 77 Respiratory Rate 14 Blood Pressure 160/98 H Blood Pressure Mean 118 Pulse Ox 98 Oxygen Delivery Method Room Air MDM MDM MDM Narrative Medical decision making narrative: I do not feel that differential diagnosis is applicable here. As he has a large amount of quick clot dry to his skin, his left index finger will be soaked in wound cleansed for better assessment. On repeat examination, there is 1.7 cm laceration on the lateral aspect of the left index finger just proximal to the DIP joint and the distal portion may include a small portion of the DIP joint. Procedure note: Patient had his hand soaked and warm soapy water, and digital block performed using 1% lidocaine. He did require local anesthesia/infiltration as well. Turnicot was applied. Quick clot was removed and wound edges were cleaned using Shur-Clens and saline. The 1.7 cm laceration was closed using 5 simple interrupted sutures of 5.0 Ethilon. Patient tolerated procedure well. Turnicot removed with good capillary refill. Wound was dressed. He was told to look for signs of infection, and have the sutures removed in 7 to 10 days by his primary care provider or return to the emergency department. Return instructions to the emergency department were reviewed. Disposition is discharged home in stable condition. History & Record Review Discussion w/independent historian: Patient Discharge Plan Triage Chief Complaint: Laceration ED Provider: Sheng Carbajal Dx/Rx/DC Orders Clinical Impression: Laceration of left index finger Instructions: ED Hand Laceration- All Closures Prescriptions: No Action acetaminophen [Tylenol] 325 mg tablet 325 mg PO Q4H PRN (Reason: pain) ibuprofen [Advil] 200 mg tablet 200 mg PO Q4H oxycodone 5 mg Tablet 5 mg PO Q6H PRN PRN (Reason: Pain Score 4-10) 2 Days Qty: 6 0RF ciprofloxacin HCl [Cipro] 500 mg tablet 500 mg PO BID 7 Days Qty: 14 0RF Stand Alone Forms: ED Work / School Excuse Primary Care Provider: Jasmeet Granados Referrals: Jasmeet Granados MD [Primary Care Provider] - 10 Day for suture removal Activity Restrictions/Additional Instructions: [id number] medications like ibuprofen or Tylenol for pain. Return with fever, red streak up your arm, drainage of pus from wound, new or worsening symptoms. Have your primary care provider remove the sutures in 7 to 10 days or return to the emergency department. Print Language: Citizen Of [place] Disposition Disposition: Home, Self Care
[2025-06-18] MEDS: Lidocaine 1% (20 ml mdv) 20 ML Vial INFILT (08:35)
[2025-06-18 10:23] VITALS: BP 154/85; PULSE 81; RESP 14; TEMP 36.2; O2SAT 98
== END 2025-06-18 10:24 | disposition home or self-care (01) ==
PROVIDERS: Emergency Provider Emergency Medicine; PCP Family Medicine; Visit Provider Emergency Medicine
DX: S61.211A Laceration without foreign body of left index finger without damage to nail, initial encounter (principal); I10 Essential (primary) hypertension; W26.0XXA Contact with knife, initial encounter; Y93.G3 Activity, cooking and baking; Z79.899 Other long term (current) drug therapy; F17.210 Nicotine dependence, cigarettes, uncomplicated
CPT/HCPCS: 12001; 99284

== ENCOUNTER → 2025-08-13 | Outpatient (CLI) | payer BC, SELFPAY ==
[2025-08-13 15:09] LABS: PSA,Total - Annual Screen 0.62 ng/mL (0.02-4.00)
== END | disposition home or self-care (01) ==
PROVIDERS: PCP Family Medicine; Referring Provider Urology; Visit Provider Urology
DX: Z12.5 Encounter for screening for malignant neoplasm of prostate (principal); Z11.3 Encounter for screening for infections with a predominantly sexual mode of transmission; N39.0 Urinary tract infection, site not specified
CPT/HCPCS: 36415; 84153; 87086; 87491; 87591; G0103